=== PATIENT | male | born 1990 | race African-American/Black ===

== ENCOUNTER 2016-09-17 17:32 | Emergency (ER) | payer SELFPAY ==
[~2016-09-17] VITALS: Ht 190.5 cm; Wt 95.3 kg
[2016-09-17 18:19] VITALS: BP 112/63
== END 2016-09-17 19:16 | disposition home or self-care (01) ==
LOC: ER 17:34
DX: S16.1XXA Strain of muscle, fascia and tendon at neck level, initial encounter (principal); S80.01XA Contusion of right knee, initial encounter; V89.2XXA Person injured in unspecified motor-vehicle accident, traffic, initial encounter; Y93.89 Activity, other specified; Y92.488 Other paved roadways as the place of occurrence of the external cause; Y99.8 Other external cause status
CPT/HCPCS: 99283; A4606; Z7610